=== PATIENT | male | born 1980 | race Caucasian/White ===

== ENCOUNTER 2023-11-13 20:44 | Emergency (ER) | payer BC, SELFPAY ==
[2023-11-13 20:51] VITALS: BP 166/99; PULSE 84; RESP 20; TEMP 36.8; O2SAT 99; BMI 40.4
--- NOTE | 2023-11-13 20:54 | CRLHL7_ITS ---
For Patients: As a result of the Century Cures Act, medical imaging exams and procedure reports are released immediately into your electronic medical record. You may view this report before your referring provider. If you have questions, please contact your health care provider. INDICATION: RIGHT FLANK PAIN, VOMITING, TESTICLE PAIN. TECHNIQUE: CT abdomen and pelvis without contrast. COMPARISON: None. FINDINGS: Limited evaluation of the intra-abdominal solid organs without IV contrast. Lower chest: Unremarkable. Liver: Normal in size and attenuation. No suspicious masses. Gallbladder and bile ducts: No stones or inflammation. No biliary dilatation. Pancreas: Unremarkable. No mass or inflammation. Spleen: Normal in size. No masses. Adrenal glands: Normal in size. No nodules. Kidneys: 3-4 millimeter stone identified at the right UVJ with proximal mild hydroureteronephrosis on the right side. There are at least 2 punctate nonobstructing stones in the right kidney. At least 3 punctate nonobstructing stones in the left kidney. No left hydronephrosis or hydroureter. GI tract: Tiny hiatal hernia. No bowel obstruction. Normal appendix. Vasculature: Abdominal aorta is normal in caliber. Lymph nodes: No lymphadenopathy. Peritoneum/Abdominal Wall: Unremarkable. No sign of mass or infiltration. No free air or significant free fluid. Pelvis: Bladder is collapsed. Likely bladder wall thickening related to incomplete distention. Prostate is unremarkable. Bones: Unremarkable for age. IMPRESSION: 1. 3 millimeter stone at the right UVJ with proximal mild hydroureteronephrosis. 2. Additional nonobstructing stones bilaterally. Please note that all CT scans at this facility use dose modulation, iterative reconstruction, and/or weight-based dosing when appropriate to reduce radiation dose to as low as reasonably achievable. Dictated by Helder Chaudhry MD @ 11/13/2023 9:26:56 PM (Electronically Signed)
[2023-11-13 21:00] VITALS: O2SAT 99
[2023-11-13] MEDS: ONDANSETRON 2 MG/ML inj 4 MG IVP (21:00)
[2023-11-13] MEDS: 0.9 % SODIUM CHLORIDE 1000 ml 1,000 ML IV (21:00)
[2023-11-13 21:05] VITALS: TEMP 36.8
[2023-11-13] MEDS: KETOROLAC 30 MG/ML inj IVP (21:05)
[2023-11-13 21:14] LABS: Basophils Absolute Auto 0.03 K/uL (0.00-0.30); Basophils Percent Auto 0.3 % (0.0-3.0); Hematocrit 40.8 % (37.0-53.0); Hemoglobin* 13.9 gm/dL (13.5-17.5); Immature Granulocytes Abs Auto 0.03 K/uL (0.00-0.30); Immature Granulocytes Pct Auto 0.3 %; Lymphocytes Absolute Auto 3.19 K/uL (0.90-2.90); Lymphocytes Percent Auto 32.2 % (20-44); Mean Corpuscular HGB Conc 34 gm/dL (32-36); Mean Corpuscular Hemoglobin 29 pg (26-34); Mean Corpuscular Volume 86 fL (80-100); Monocytes Percent Auto 7.4 % (0.0-11.0); Neutrophils Absolute Auto 5.64 K/uL (1.7-7.0); Neutrophils Percent Auto 56.8 % (42.0-72.0); Platelet Count* 275 K/uL (140-440); Red Blood Count 4.75 m/uL (4.30-5.90); White Blood Count* 9.92 K/uL (4.50-11.00)
[2023-11-13 21:21] LABS: Appearance Urine Cloudy (Clear); Bilirubin Urine Negative (Negative); Blood Urine 3+ (Negative); Color Urine Yellow (Yellow); Glucose Urine Negative (Negative); Ketones Urine Trace (Negative); Leukocyte Esterase Urine Negative (Negative); Nitrite Urine Negative (Negative); Protein Urine 1+ (Negative); Specific Gravity Urine >= 1.030 (1.000-1.030); Urobilinogen Urine 0.2 (0.2-1.0); pH Urine 5.5 (5.0-8.5)
--- NOTE | 2023-11-13 21:22 | ED.GENADULT ---
HPI - General Adult General Chief complaint: Flank Pain Stated complaint: vomiting and testicle pain Time Seen by Provider: 11/13/23 20:53 Source: patient Mode of arrival: ambulatory Limitations: no limitations History of Present Illness HPI narrative: 43-year-old male coming in today complaining of right-sided flank pain. Pain started 2 days ago. In the last several hours the pain has become much more intense and now radiates around the flank into the abdomen down into the right testicle. Patient denies dysuria, blood in his urine, increased urinary frequency or urgency. He denies fevers or chills. Since the pain has gotten so much more intense in the last several hours he has started vomiting. No vomiting prior to this. Patient denies any testicular swelling, penile discharge. Pain is not associated with eating. Car I did not makes the pain worse. Patient does have a history of kidney stones. States that the pain feels very familiar to his previous episode. He denies any diarrhea or constipation. Had a bowel movement today and was normal. Related Data Home Medications ?Medication ?Instructions ?Recorded ?Confirmed clindamycin HCl 150 mg capsule 150 mg PO Q6H 11/13/23 11/13/23 fluticasone propionate 50 2 spray intranasal DAILY 11/13/23 11/13/23 mcg/actuation nasal spray,suspension losartan 25 mg tablet 25 mg PO DAILY 11/13/23 11/13/23 omeprazole 20 mg capsule,delayed 20 mg PO DAILY 11/13/23 11/13/23 release Allergies Allergy/AdvReac Type Severity Reaction Status Date / Time Penicillins Allergy Mild Hives Verified 11/13/23 20:54 Review of Systems Status of ROS: Reports: 10 or more systems reviewed and unremarkable except as noted in History and below [facility] Medical History Kidney stones ?N20.0 - Calculus of kidney (ICD-10) Social History Smoking Status: Never smoker Second hand tobacco smoke exposure: No How often do you have a drink containing alcohol: never AUDIT-C Alcohol total score: 0 Non-prescribed substance use: denies use Exam Narrative: Exam Narrative: When I go to examine the patient, he has already received IV Toradol. Overweight, well-developed patient in no acute distress. Alert and oriented. Answers questions appropriately. Mood and affect are appropriate. Thoughts are goal oriented and rational. No tangential or magical thinking noted. Patient speaks in full sentences without needing to catch his breath. HEENT: Normocephalic atraumatic. Pupils are equally round reactive to light. Extraocular muscles are intact. Conjunctivae are moist without any icterus noted. Moist mucous membranes. Cardiovascular: Heart is regular rate and rhythm S1 and S2 are present without any murmurs. Lungs: Clear to auscultation bilaterally no wheezes rhonchi or rales are appreciated. Patient takes deep breaths without any discomfort. Abdomen: Soft and nontender nondistended with normal bowel sounds. No guarding or rebound. No masses or organomegaly appreciated. Mild right-sided CVA tenderness. Extremities: Bilateral lower extremities are without edema. Delete Skin: Well perfused without any obvious rashes. Const: Vital Signs, click to edit/add: Vital Signs - 24 hr 11/13/23 20:51 11/13/23 21:05 Temperature 98.2 F 98.2 F Pulse Rate [Right Pulse Oximeter] 84 Respiratory Rate 20 Blood Pressure [Ri ght Upper Arm] 166/99 H Pulse Oximetry 99 Oxygen Delivery Me thod Room Air Course Course ED Course: IV established and a L of normal saline was started along with IV Zofran and IV Toradol which helped his pain significantly. Normal CBC. UA: Positive for blood. Chemistries: Unremarkable. Normal CRP. CT scan showing a right-sided 3 mm stone at the UVJ. Vital Signs Vital signs: Initial Vital Signs Temperature 98.2 F 11/13/23 20:51 Temperature Source Temporal Artery Scan 11/13/23 20:51 Pulse Rate 84 11/13/23 20:51 Respiratory Rate 11/13/23 20:51 Blood Pressure 166/99 H 11/13/23 20:51 Blood Pressure Mean 121 H 11/13/23 20:51 Blood Pressure Position Sitting 11/13/23 20:51 Pulse Oximetry 99 11/13/23 20:51 Oxygen Delivery Method Room Air 11/13/23 20:51 Vital Signs Temperature 98.2 F 11/13/23 20:51 Pulse Rate 84 11/13/23 20:51 Respiratory Rate 20 11/13/23 20:51 Blood Pressure 166/99 H 11/13/23 20:51 Pulse Oximetry 99 11/13/23 20:51 Oxygen Delivery Method Room Air 11/13/23 20:51 Temperature 98.2 F 11/13/23 21:05 Pulse Rate 84 11/13/23 20:51 Respiratory Rate 20 11/13/23 20:51 Blood Pressure 166/99 H 11/13/23 20:51 Pulse Oximetry 99 11/13/23 20:51 Oxygen Delivery Method Room Air 11/13/23 20:51 Medications Administered Medications: Generic Name Dose Route Start Last Admin Trade Name Freq PRN Reason Stop Dose Admin Sodium Chloride 1,000 mls @ 1,000 mls/hr 11/13/23 21:00 11/13/23 21:00 0.9 % Sodium Chloride 1000 Ml IV 11/13/23 21:59 1,000 mls/hr .Q1H ELIAS Administration Discontinued Medications Generic Name Dose Route Start Last Admin Trade Name Freq PRN Reason Stop Dose Admin Ketorolac Tromethamine 30 mg 11/13/23 20:54 11/13/23 21:05 Ketorolac 30 Mg/Ml Inj IVP 11/13/23 20:55 30 mg ONCE ONE Administration Ondansetron HCl 4 mg 11/13/23 20:54 11/13/23 21:00 Ondansetron 2 Mg/Ml Inj IVP 11/13/23 20:55 4 mg ONCE ONE Administration Medical Decision Making MDM Narrative Medical decision making narrative: 43-year-old male with a renal stone. Small enough that it should pass on its own. We will send the patient home with Toradol. No evidence of infection at this time. Lab Data Lab results reviewed: Yes I reviewed the patient's lab results Labs: Lab Results 11/13/23 11/13/23 Range/Units 20:55 21:00 WBC 9.92 (4.50-11.00) K/uL RBC 4.75 (4.30-5.90) m/uL Hgb 13.9 (13.5-17.5) gm/dL Hct 40.8 (37.0-53.0) % MCV 86 (80-100) fL MCH 29 (26-34) pg MCHC 34 (32-36) gm/dL RDW Coeff of Donna 13.0 (11.5-15.5) % Plt Count 275 (140-440) K/uL Neut % (Auto) 56.8 (42.0-72.0) % Lymph % (Auto) 32.2 (20-44) % [place] % (Auto) 7.4 (0.0-11.0) % Eos % (Auto) 3.0 (0.0-7.0) % Baso % (Auto) 0.3 (0.0-3.0) % Neut # (Auto) 5.64 (1.7-7.0) K/uL Lymph # (Auto) 3.19 H (0.90-2.90) K/uL [place] # (Auto) 0.70 (0.00-0.90) K/UL Eos # (Auto) 0.30 (0.00-0.50) K/uL Baso # (Auto) 0.03 (0.00-0.30) K/uL Abs Immat Gran (auto) 0.03 (0.00-0.30) K/uL Imm/Tot Granulo (auto) 0.3 % Sodium 137 (135-149) mmol/L Potassium 3.9 (3.6-5.1) mmol/L Chloride 106 (96-114) mmol/L Carbon Dioxide 21 (20-32) mmol/L Anion Gap 10 (7-15) mEq/L BUN 14 (5-24) mg/dL Creatinine 1.3 (0.5-1.5) mg/dL Estimated Creat Clear 64.75 Estimated GFR 69 ml/min Glucose 126 H (60-115) mg/dL Calcium 9.1 (8.4-10.6) mg/dL Total Bilirubin 0.5 (0.1-1.5) mg/dL Direct Bilirubin 0.3 (0.0-0.5) mg/dL AST 37 H (12-35) U/L ALT 43 (4-50) U/L Alkaline Phosphatase 84 (40-150) U/L C-Reactive Protein < 0.5 L (0.5-1.0) mg/dL Total Protein 7.5 (6.0-8.3) g/dL Albumin 4.7 (3.3-5.0) g/dL Urine Color Yellow (Yellow) Urine Appearance Cloudy A (Clear) Urine pH 5.5 (5.0-8.5) Ur Specific [place] >= 1.030 (1.000-1.030) Urine Protein 1+ A (Negative) Urine Glucose (UA) Negative (Negative) Urine Ketones Trace A (Negative) Urine Blood 3+ A (Negative) Urine Nitrite Negative (Negative) Urine Bilirubin Negative (Negative) Urine Urobilinogen 0.2 (0.2-1.0) Ur Leukocyte Esterase Negative (Negative) Urine RBC 5-10 A (0-2) Urine WBC 2-5 (0-5) Ur Squamous Epith Cells Few (None-Few) Urine Bacteria Few A (None) Urine Yeast Few A (None) Imaging Data CT Chest/Ab/Pelvis: Attestation: I have reviewed the pertinent imaging results. Radiologist's impression: CT abdomen and pelvis without contrast. COMPARISON: None. FINDINGS: Limited evaluation of the intra-abdominal solid organs without IV contrast. Lower chest: Unremarkable. Liver: Normal in size and attenuation. No suspicious masses. Gallbladder and bile ducts: No stones or inflammation. No biliary dilatation. Pancreas: Unremarkable. No mass or inflammation. Spleen: Normal in size. No masses. Adrenal glands: Normal in size. No nodules. Kidneys: 3-4 millimeter stone identified at the right UVJ with proximal mild hydroureteronephrosis on the right side. There are at least 2 punctate nonobstructing stones in the right kidney. At least 3 punctate nonobstructing stones in the left kidney. No left hydronephrosis or hydroureter. GI tract: Tiny hiatal hernia. No bowel obstruction. Normal appendix. Vasculature: Abdominal aorta is normal in caliber. Lymph nodes: No lymphadenopathy. Peritoneum/Abdominal Wall: Unremarkable. No sign of mass or infiltration. No free air or significant free fluid. Pelvis: Bladder is collapsed. Likely bladder wall thickening related to incomplete distention. Prostate is unremarkable. Bones: Unremarkable for age. IMPRESSION: 1. 3 millimeter stone at the right UVJ with proximal mild hydroureteronephrosis. 2. Additional nonobstructing stones bilaterally. Discharge Plan Discharge Clinical Impression: Renal calculi Patient Disposition: Home, Self-Care Condition: Stable Additional Instructions: You have a 3 mm stone, this should pass on its own. It is almost at the bladder. Use Toradol as needed/as directed for pain. Return to the ER if you develop a fever. Toradol sent to [facility]. Prescriptions: No Action clindamycin HCl 150 mg capsule 150 mg PO Q6H losartan 25 mg tablet 25 mg PO DAILY omeprazole 20 mg capsule,delayed release(DR/EC) 20 mg PO DAILY fluticasone propionate 50 mcg/actuation spray,suspension 2 spray INTRANASAL DAILY Follow Up/Referrals: Provider,Not a Local [Primary Care Provider] - Stand Alone Forms: [employer] Info Instructions
[2023-11-13 21:32] LABS: Slide Review Reflex No
[2023-11-13 21:35] LABS: Albumin* 4.7 g/dL (3.3-5.0); Chloride* 106 mmol/L (96-114); Sodium* 137 mmol/L (135-149)
[2023-11-13 21:36] LABS: Potassium* 3.9 mmol/L (3.6-5.1)
[2023-11-13 21:38] LABS: Alkaline Phosphatase* 84 U/L (40-150); Anion Gap 10 mEq/L (7-15); Aspartate Amino Transferase* 37 U/L (12-35); Bilirubin Direct* 0.3 mg/dL (0.0-0.5); Bilirubin Total* 0.5 mg/dL (0.1-1.5); Blood Urea Nitrogen* 14 mg/dL (5-24); Carbon Dioxide* 21 mmol/L (20-32); Creatinine* 1.3 mg/dL (0.5-1.5); Est. Creatinine Clearance* 64.75; Estimated Glomerular Filt Rate 69 ml/min; Total Protein* 7.5 g/dL (6.0-8.3)
[2023-11-13 21:39] LABS: Glucose* 126 mg/dL (60-115)
[2023-11-13 21:40] LABS: Alanine Aminotransferase* 43 U/L (4-50); Calcium* 9.1 mg/dL (8.4-10.6)
[2023-11-13 21:44] LABS: C Reactive Protein* < 0.5 mg/dL (0.5-1.0)
[2023-11-13 21:48] LABS: Bacteria Urine Few; Squamous Epithelial Cell Urine Few (None-Few)
[2023-11-13 22:00] VITALS: BP 132/74; PULSE 80; RESP 20; TEMP 36.8; O2SAT 99
[2023-11-13 22:03] VITALS: BP 132/74; PULSE 80; RESP 20; TEMP 36.8
== END 2023-11-13 22:03 | disposition home or self-care (01) ==
PROVIDERS: Emergency Provider Family Medicine
DX: N20.0 Calculus of kidney (principal)
CPT/HCPCS: 36415; 74176; 80048; 80076; 81001; 85025; 86140; 87086; 94761; 96374; 96375; 99284; J1885; J2405; J7030